=== PATIENT | female | born 1945 | race Caucasian/White ===

== ENCOUNTER 2020-03-07 12:02 | Inpatient (IN) | payer OTHER ==
[2020-03-07] MEDS ORDERED: ACETAMINOPHEN 325 MG TABLET (FP) PO ONE (13:39)
[2020-03-07 13:42] LABS: BASO % 0.3 % (0-2.0); HEMATOCRIT 36.2 % (32.4-45.2); HEMOGLOBIN 12.3 GM/dL (10.7-15.3); LYMPH % 18.6 % (8-40); MCH 29.2 pg (25.7-33.7); MEAN CELL VOLUME 85.6 fl (80-96); MEAN PLT VOLUME 9.5 fl (7.5-11.1); MONO % 11.8 % (3.8-10.2); NEUT % 69.3 % (42.8-82.8); PLATELET COUNT 140 K/MM3 (134-434); RBC 4.23 M/mm3 (3.60-5.2); RDW 17.3 % (11.6-15.6); WHITE BLOOD COUNT 3.4 K/mm3 (4.0-10.0)
[2020-03-07 14:49] LABS: CHLORIDE 97 mmol/L (98-107); POTASSIUM 3.5 mmol/L (3.5-5.1); SODIUM 133 mmol/L (136-145)
[2020-03-07 14:51] LABS: CALCIUM 8.4 mg/dL (8.5-10.1)
[2020-03-07 14:52] LABS: ALBUMIN 3.5 g/dl (3.4-5.0); ANION GAP 9 MMOL/L (8-16); BLOOD UREA NITROGEN 10.8 mg/dL (7-18); CO2 28 mmol/L (21-32); GLUCOSE,RANDOM 230 mg/dL (74-106)
[2020-03-07 14:56] LABS: SGOT/AST 22 U/L (15-37); SGPT/ALT 15 U/L (13-61)
[2020-03-07 14:57] LABS: ALK PHOS 79 U/L (45-117); BILIRUBIN,TOTAL 0.8 mg/dL (0.2-1); TOT PROT 6.9 g/dl (6.4-8.2)
[2020-03-07] MEDS ORDERED: ACETAMINOPHEN 325 MG TABLET (FP) ONE (15:20)
[2020-03-07 15:41] LABS: N-TERMINAL BNP 93.2 pg/ml (5-450)
[2020-03-07 15:49] LABS: INR 1.14 (0.83-1.09)
[2020-03-07 15:52] LABS: ACTIVATED PTT 29.6 SECONDS (25.2-36.5)
[2020-03-07] MEDS ORDERED: DEXAMETHASONE SOD PHOSPHATE 4 MG/1 ML VIAL IVPUSH ONE (16:00)
[2020-03-07] MEDS ORDERED: DEXAMETHASONE SOD PHOSPHATE 10 MG/1 ML VIAL ONE (16:46)
[2020-03-08 07:58] LABS: BASO % 0.3 % (0-2.0); HEMATOCRIT 36.6 % (32.4-45.2); HEMOGLOBIN 12.2 GM/dL (10.7-15.3); LYMPH % 21.6 % (8-40); MCH 28.7 pg (25.7-33.7); MCHC 33.4 g/dl (32.0-36.0); MEAN CELL VOLUME 85.9 fl (80-96); MEAN PLT VOLUME 9.6 fl (7.5-11.1); MONO % 8.8 % (3.8-10.2); NEUT % 69.3 % (42.8-82.8); PLATELET COUNT 144 K/MM3 (134-434); RBC 4.26 M/mm3 (3.60-5.2); WHITE BLOOD COUNT 2.3 K/mm3 (4.0-10.0)
[2020-03-08 08:25] LABS: POTASSIUM 3.7 mmol/L (3.5-5.1)
[2020-03-08 08:30] LABS: ALBUMIN 3.3 g/dl (3.4-5.0); CALCIUM 8.2 mg/dL (8.5-10.1)
[2020-03-08 08:31] LABS: BLOOD UREA NITROGEN 14.8 mg/dL (7-18); MAGNESIUM 2.3 mg/dL (1.8-2.4)
[2020-03-08 08:34] LABS: CREATININE 0.8 mg/dL (0.55-1.3); PHOSPHOROUS 3.1 mg/dL (2.5-4.9)
[2020-03-08 08:35] LABS: BILIRUBIN,TOTAL 0.9 mg/dL (0.2-1); TOT PROT 6.7 g/dl (6.4-8.2)
[2020-03-08] MEDS ORDERED: AZITHROMYCIN IVPB 500 MG/250 ML BAG IVPB ONE (10:47)
[2020-03-08] MEDS ORDERED: DEXAMETHASONE SOD PHOSPHATE 4 MG/1 ML VIAL ONE ×2 (10:47→14:36)
[2020-03-08] MEDS: ENOXAPARIN NA (PORCINE) 40 MG/0.4 ML DISP.SYRIN SQ SCH (11:48)
[2020-03-08] MEDS ORDERED: CEFTRIAXONE 1 GM in DEXTROSE 5%-WATER - 50 ML IVPB SCH (13:15)
[2020-03-08] MEDS ORDERED: AZITHROMYCIN IVPB 500 MG/250 ML BAG IVPB SCH (13:15)
[2020-03-08] MEDS: FAMOTIDINE 20 MG/50 ML IVPB 20 MG/50 ML MG IVPB SCH ×2 (14:12→22:14)
[2020-03-08] MEDS: AZITHROMYCIN IVPB 500 MG/250 ML BAG IVPB SCH (14:12)
[2020-03-08] MEDS: CEFTRIAXONE 1 GM in DEXTROSE 5%-WATER - 50 ML IVPB SCH (14:12)
[2020-03-08] MEDS: DEXAMETHASONE SOD PHOSPHATE 10 MG/1 ML VIAL IVPUSH SCH (14:12)
[2020-03-08] MEDS ORDERED: CEFTRIAXONE 1 GM/50 ML BAG ONE (14:37)
[2020-03-08] MEDS ORDERED: FAMOTIDINE 20 MG/50 ML IVPB 20 MG/50 ML MG IVPB ONE (14:37)
[2020-03-08] MEDS ORDERED: REMDESIVIR 200 MG in SODIUM CHLORIDE 210 ML IVPB ONE (14:49)
[2020-03-08] MEDS: SODIUM CHLORIDE 1,000 ML IV SCH ×2 (14:51→21:12)
[2020-03-08] MEDS: INSULIN SLIDING SCALE (NOVOLOG) 1 VIAL SQ SCH ×2 (18:03→21:26)
[2020-03-08] MEDS: ASCORBIC ACID 500 MG TABLET (FP) PO SCH (22:13)
[2020-03-08] MEDS: ZINC SULFATE 220 MG CAPSULE (FP) PO SCH (22:14)
[2020-03-09] MEDS: INSULIN SLIDING SCALE (NOVOLOG) 1 VIAL SQ SCH ×4 (06:16→21:46)
[2020-03-09 09:03] LABS: BASO % 0.1 % (0-2.0); HEMATOCRIT 32.1 % (32.4-45.2); HEMOGLOBIN 11.2 GM/dL (10.7-15.3); MCH 29.1 pg (25.7-33.7); MCHC 34.9 g/dl (32.0-36.0); MEAN CELL VOLUME 83.3 fl (80-96); MEAN PLT VOLUME 8.8 fl (7.5-11.1); NEUT % 79.9 % (42.8-82.8); PLATELET COUNT 180 K/MM3 (134-434); RBC 3.85 M/mm3 (3.60-5.2); RDW 16.8 % (11.6-15.6); WHITE BLOOD COUNT 5.1 K/mm3 (4.0-10.0)
[2020-03-09] MEDS ORDERED: PT OWN MED DRAWER 7, Y5N ONE ×2 (09:20→14:25)
[2020-03-09] MEDS ORDERED: DEXTROSE 5%-WATER - 50 ML IVPB ONE (09:20)
[2020-03-09] MEDS ORDERED: cefTRIAXone SODIUM 1 GM VIAL ONE (09:20)
[2020-03-09 09:23] LABS: POTASSIUM 3.5 mmol/L (3.5-5.1)
[2020-03-09] MEDS: ASCORBIC ACID 500 MG TABLET (FP) PO SCH ×2 (09:25→21:33)
[2020-03-09] MEDS: CHOLECALCIFEROL (VIT D3) 1,000 UNIT (25 MCG) TABLET PO SCH (09:25)
[2020-03-09] MEDS: ZINC SULFATE 220 MG CAPSULE (FP) PO SCH ×2 (09:25→21:33)
[2020-03-09 09:26] LABS: ALBUMIN 2.8 g/dl (3.4-5.0); BLOOD UREA NITROGEN 17.6 mg/dL (7-18); CALCIUM 7.8 mg/dL (8.5-10.1); MAGNESIUM 2.3 mg/dL (1.8-2.4)
[2020-03-09] MEDS: CEFTRIAXONE 1 GM in DEXTROSE 5%-WATER - 50 ML IVPB SCH (09:26)
[2020-03-09] MEDS: DEXAMETHASONE SOD PHOSPHATE 10 MG/1 ML VIAL IVPUSH SCH (09:27)
[2020-03-09 09:29] LABS: CREATININE 0.8 mg/dL (0.55-1.3); PHOSPHOROUS 3.2 mg/dL (2.5-4.9)
[2020-03-09] MEDS: ENOXAPARIN NA (PORCINE) 40 MG/0.4 ML DISP.SYRIN SQ SCH (09:29)
[2020-03-09 09:31] LABS: BILIRUBIN,TOTAL 0.6 mg/dL (0.2-1); TOT PROT 5.6 g/dl (6.4-8.2)
[2020-03-09] MEDS: AZITHROMYCIN IVPB 500 MG/250 ML BAG IVPB SCH (10:56)
[2020-03-09] MEDS: FAMOTIDINE 20 MG/50 ML IVPB 20 MG/50 ML MG IVPB SCH ×2 (13:09→21:33)
[2020-03-09] MEDS: REMDESIVIR 100 MG in SODIUM CHLORIDE 230 ML IVPB SCH (14:29)
[2020-03-09] MEDS ORDERED: INSULIN (NOVOLOG) ASPART 100 UNITS/ML 10ML VIAL ONE (17:50)
[2020-03-09] MEDS: SODIUM CHLORIDE 1,000 ML IV SCH (17:53)
[2020-03-09] MEDS: ATORVASTATIN CA 10 MG TABLET (FP) PO SCH (21:33)
[2020-03-10] MEDS: INSULIN SLIDING SCALE (NOVOLOG) 1 VIAL SQ SCH ×4 (06:21→21:21)
[2020-03-10 08:41] LABS: BASO % 0.3 % (0-2.0); HEMATOCRIT 32.3 % (32.4-45.2); LYMPH % 12.6 % (8-40); MCH 28.9 pg (25.7-33.7); MCHC 34.1 g/dl (32.0-36.0); MEAN CELL VOLUME 84.9 fl (80-96); MEAN PLT VOLUME 9.2 fl (7.5-11.1); MONO % 10.6 % (3.8-10.2); NEUT % 76.5 % (42.8-82.8); PLATELET COUNT 188 K/MM3 (134-434); RDW 16.7 % (11.6-15.6); WHITE BLOOD COUNT 5.4 K/mm3 (4.0-10.0)
[2020-03-10 08:55] LABS: POTASSIUM 3.8 mmol/L (3.5-5.1)
[2020-03-10 08:58] LABS: BLOOD UREA NITROGEN 16.2 mg/dL (7-18); CALCIUM 8.1 mg/dL (8.5-10.1)
[2020-03-10 09:01] LABS: CREATININE 0.7 mg/dL (0.55-1.3)
[2020-03-10] MEDS ORDERED: PT OWN MED DRAWER 7, Y5N ONE (09:16)
[2020-03-10] MEDS: ASCORBIC ACID 500 MG TABLET (FP) PO SCH ×2 (09:20→21:18)
[2020-03-10] MEDS: DEXAMETHASONE SOD PHOSPHATE 10 MG/1 ML VIAL IVPUSH SCH (09:21)
[2020-03-10] MEDS: ZINC SULFATE 220 MG CAPSULE (FP) PO SCH ×2 (09:21→21:17)
[2020-03-10] MEDS: FAMOTIDINE 20 MG/50 ML IVPB 20 MG/50 ML MG IVPB SCH ×2 (09:21→21:18)
[2020-03-10] MEDS: amLODIPine BESYLATE 5 MG TABLET (FP) PO SCH (09:21)
[2020-03-10] MEDS: CHOLECALCIFEROL (VIT D3) 1,000 UNIT (25 MCG) TABLET PO SCH (09:21)
[2020-03-10] MEDS: ENOXAPARIN NA (PORCINE) 40 MG/0.4 ML DISP.SYRIN SQ SCH (09:21)
[2020-03-10] MEDS ORDERED: INSULIN (NOVOLOG) ASPART 100 UNITS/ML 10ML VIAL ONE (12:22)
[2020-03-10] MEDS: REMDESIVIR 100 MG in SODIUM CHLORIDE 230 ML IVPB SCH (15:45)
[2020-03-10] MEDS: SODIUM CHLORIDE 1,000 ML IV SCH (15:45)
[2020-03-10] MEDS: ATORVASTATIN CA 10 MG TABLET (FP) PO SCH (21:17)
[2020-03-11] MEDS ORDERED: ACETAMINOPHEN 325 MG TABLET (FP) PO ONE (03:30)
[2020-03-11] MEDS: INSULIN SLIDING SCALE (NOVOLOG) 1 VIAL SQ SCH ×4 (06:09→22:01)
[2020-03-11 08:22] LABS: BASO % 0.1 % (0-2.0); HEMATOCRIT 37.1 % (32.4-45.2); HEMOGLOBIN 12.5 GM/dL (10.7-15.3); LYMPH % 16.6 % (8-40); MCH 28.3 pg (25.7-33.7); MCHC 33.5 g/dl (32.0-36.0); MEAN CELL VOLUME 84.5 fl (80-96); MEAN PLT VOLUME 9.1 fl (7.5-11.1); NEUT % 72.3 % (42.8-82.8); PLATELET COUNT 257 K/MM3 (134-434); RDW 16.9 % (11.6-15.6); WHITE BLOOD COUNT 5.9 K/mm3 (4.0-10.0)
[2020-03-11 08:41] LABS: POTASSIUM 3.2 mmol/L (3.5-5.1)
[2020-03-11 08:47] LABS: CALCIUM 8.3 mg/dL (8.5-10.1)
[2020-03-11 08:48] LABS: BLOOD UREA NITROGEN 17.8 mg/dL (7-18)
[2020-03-11 08:51] LABS: CREATININE 0.8 mg/dL (0.55-1.3)
[2020-03-11] MEDS ORDERED: BENZOCAINE/MENTH/CETYLPYRD CL 1 EACH LOZENGE MM PRN (09:01)
[2020-03-11] MEDS ORDERED: guaiFENesin 200 MG/10 ML 10 ML UNIT-DOSE CUPS PO PRN (09:01)
[2020-03-11] MEDS ORDERED: DOCUSATE SODIUM 100 MG CAPSULE (FP) PO PRN (09:02)
[2020-03-11] MEDS ORDERED: POTASSIUM CHLORIDE TABS 20 MEQ TABLET.ER (FP) PO ONE (09:04)
[2020-03-11] MEDS: FAMOTIDINE 20 MG/50 ML IVPB 20 MG/50 ML MG IVPB SCH ×2 (09:49→21:55)
[2020-03-11] MEDS: DEXAMETHASONE SOD PHOSPHATE 10 MG/1 ML VIAL IVPUSH SCH (09:49)
[2020-03-11] MEDS: ENOXAPARIN NA (PORCINE) 40 MG/0.4 ML DISP.SYRIN SQ SCH (09:50)
[2020-03-11] MEDS: ZINC SULFATE 220 MG CAPSULE (FP) PO SCH ×2 (09:50→21:55)
[2020-03-11] MEDS: CHOLECALCIFEROL (VIT D3) 1,000 UNIT (25 MCG) TABLET PO SCH (09:51)
[2020-03-11] MEDS: amLODIPine BESYLATE 5 MG TABLET (FP) PO SCH (09:51)
[2020-03-11] MEDS: ASCORBIC ACID 500 MG TABLET (FP) PO SCH ×2 (09:51→21:55)
[2020-03-11] MEDS ORDERED: INSULIN (NOVOLOG) ASPART 100 UNITS/ML 10ML VIAL ONE ×2 (11:11→21:59)
[2020-03-11] MEDS: REMDESIVIR 100 MG in SODIUM CHLORIDE 230 ML IVPB SCH (14:53)
[2020-03-11] MEDS: ATORVASTATIN CA 10 MG TABLET (FP) PO SCH (21:55)
[2020-03-11] MEDS ORDERED: PT OWN MED DRAWER 7, Y5N ONE (21:59)
[2020-03-12] MEDS: INSULIN SLIDING SCALE (NOVOLOG) 1 VIAL SQ SCH ×4 (06:15→21:48)
[2020-03-12 09:00] LABS: BASO % 0.1 % (0-2.0); HEMATOCRIT 34.9 % (32.4-45.2); HEMOGLOBIN 12.2 GM/dL (10.7-15.3); LYMPH % 10.2 % (8-40); MCH 28.8 pg (25.7-33.7); MCHC 34.9 g/dl (32.0-36.0); MEAN CELL VOLUME 82.6 fl (80-96); MEAN PLT VOLUME 8.5 fl (7.5-11.1); MONO % 7.1 % (3.8-10.2); NEUT % 82.6 % (42.8-82.8); PLATELET COUNT 294 K/MM3 (134-434); RBC 4.23 M/mm3 (3.60-5.2); RDW 16.4 % (11.6-15.6); WHITE BLOOD COUNT 7.6 K/mm3 (4.0-10.0)
[2020-03-12 09:18] LABS: POTASSIUM 3.5 mmol/L (3.5-5.1)
[2020-03-12 09:24] LABS: CALCIUM 8.4 mg/dL (8.5-10.1)
[2020-03-12 09:28] LABS: CREATININE 0.8 mg/dL (0.55-1.3)
[2020-03-12] MEDS: amLODIPine BESYLATE 5 MG TABLET (FP) PO SCH (10:58)
[2020-03-12] MEDS: FAMOTIDINE 20 MG/50 ML IVPB 20 MG/50 ML MG IVPB SCH ×2 (10:58→21:31)
[2020-03-12] MEDS: DEXAMETHASONE SOD PHOSPHATE 10 MG/1 ML VIAL IVPUSH SCH (10:58)
[2020-03-12] MEDS: ASCORBIC ACID 500 MG TABLET (FP) PO SCH ×2 (10:58→21:31)
[2020-03-12] MEDS: ENOXAPARIN NA (PORCINE) 40 MG/0.4 ML DISP.SYRIN SQ SCH (10:58)
[2020-03-12] MEDS: CHOLECALCIFEROL (VIT D3) 1,000 UNIT (25 MCG) TABLET PO SCH (10:58)
[2020-03-12] MEDS: ZINC SULFATE 220 MG CAPSULE (FP) PO SCH ×2 (10:58→21:31)
[2020-03-12] MEDS: REMDESIVIR 100 MG in SODIUM CHLORIDE 230 ML IVPB SCH (14:07)
[2020-03-12] MEDS: ATORVASTATIN CA 10 MG TABLET (FP) PO SCH (21:31)
[2020-03-13] MEDS: INSULIN SLIDING SCALE (NOVOLOG) 1 VIAL SQ SCH ×4 (06:29→21:49)
[2020-03-13] MEDS ORDERED: INSULIN (NOVOLOG) ASPART 100 UNITS/ML 10ML VIAL ONE (06:31)
[2020-03-13 09:37] LABS: BASO % 0.2 % (0-2.0); HEMATOCRIT 37.9 % (32.4-45.2); HEMOGLOBIN 12.9 GM/dL (10.7-15.3); LYMPH % 11.2 % (8-40); MCH 28.6 pg (25.7-33.7); MCHC 34.1 g/dl (32.0-36.0); MEAN CELL VOLUME 83.8 fl (80-96); MEAN PLT VOLUME 8.9 fl (7.5-11.1); MONO % 8.3 % (3.8-10.2); NEUT % 80.3 % (42.8-82.8); PLATELET COUNT 333 K/MM3 (134-434); RBC 4.52 M/mm3 (3.60-5.2); RDW 16.8 % (11.6-15.6); WHITE BLOOD COUNT 6.9 K/mm3 (4.0-10.0)
[2020-03-13] MEDS: CHOLECALCIFEROL (VIT D3) 1,000 UNIT (25 MCG) TABLET PO SCH (09:47)
[2020-03-13] MEDS: ASCORBIC ACID 500 MG TABLET (FP) PO SCH ×2 (09:47→21:17)
[2020-03-13] MEDS: amLODIPine BESYLATE 5 MG TABLET (FP) PO SCH (09:47)
[2020-03-13] MEDS: ENOXAPARIN NA (PORCINE) 40 MG/0.4 ML DISP.SYRIN SQ SCH (09:47)
[2020-03-13] MEDS: ZINC SULFATE 220 MG CAPSULE (FP) PO SCH ×2 (09:47→21:17)
[2020-03-13] MEDS: DEXAMETHASONE SOD PHOSPHATE 10 MG/1 ML VIAL IVPUSH SCH (09:48)
[2020-03-13] MEDS: FAMOTIDINE 20 MG TABLET PO SCH ×2 (09:48→21:19)
[2020-03-13 10:04] LABS: POTASSIUM 3.9 mmol/L (3.5-5.1)
[2020-03-13 10:05] LABS: BLOOD UREA NITROGEN 17.8 mg/dL (7-18); CALCIUM 8.5 mg/dL (8.5-10.1)
[2020-03-13 10:08] LABS: CREATININE 0.8 mg/dL (0.55-1.3)
[2020-03-13 10:57] LABS: ERYTHROCYTE SEDIMENTATION RATE 14 mm/hr (0-30)
[2020-03-13] MEDS: ATORVASTATIN CA 10 MG TABLET (FP) PO SCH (21:17)
[2020-03-14] MEDS: INSULIN SLIDING SCALE (NOVOLOG) 1 VIAL SQ SCH ×4 (06:05→22:15)
[2020-03-14] MEDS ORDERED: PT OWN MED DRAWER 7, Y5N ONE (09:47)
[2020-03-14] MEDS: ZINC SULFATE 220 MG CAPSULE (FP) PO SCH ×3 (10:07→21:58)
[2020-03-14] MEDS: CHOLECALCIFEROL (VIT D3) 1,000 UNIT (25 MCG) TABLET PO SCH ×2 (10:07→10:18)
[2020-03-14] MEDS: FAMOTIDINE 20 MG TABLET PO SCH ×2 (10:07→21:58)
[2020-03-14] MEDS: ASCORBIC ACID 500 MG TABLET (FP) PO SCH ×3 (10:07→21:58)
[2020-03-14] MEDS: amLODIPine BESYLATE 5 MG TABLET (FP) PO SCH (10:07)
[2020-03-14] MEDS: ENOXAPARIN NA (PORCINE) 40 MG/0.4 ML DISP.SYRIN SQ SCH (11:43)
[2020-03-14] MEDS: ATORVASTATIN CA 10 MG TABLET (FP) PO SCH (21:58)
[2020-03-15] MEDS: INSULIN SLIDING SCALE (NOVOLOG) 1 VIAL SQ SCH ×2 (06:56→12:54)
[2020-03-15 10:03] LABS: BASO % 0.5 % (0-2.0); EOS % 0.6 % (0-4.5); HEMATOCRIT 38.4 % (32.4-45.2); HEMOGLOBIN 13.1 GM/dL (10.7-15.3); LYMPH % 8.7 % (8-40); MCH 28.9 pg (25.7-33.7); MCHC 34.1 g/dl (32.0-36.0); MEAN CELL VOLUME 84.6 fl (80-96); MEAN PLT VOLUME 8.8 fl (7.5-11.1); NEUT % 80.2 % (42.8-82.8); PLATELET COUNT 389 K/MM3 (134-434); RBC 4.54 M/mm3 (3.60-5.2); RDW 17.1 % (11.6-15.6); WHITE BLOOD COUNT 8.9 K/mm3 (4.0-10.0)
[2020-03-15 10:20] LABS: POTASSIUM 3.9 mmol/L (3.5-5.1)
[2020-03-15] MEDS ORDERED: PT OWN MED DRAWER 7, Y5N ONE (10:20)
[2020-03-15 10:22] LABS: BLOOD UREA NITROGEN 21.1 mg/dL (7-18); CALCIUM 8.9 mg/dL (8.5-10.1)
[2020-03-15] MEDS: amLODIPine BESYLATE 5 MG TABLET (FP) PO SCH (10:22)
[2020-03-15] MEDS: CHOLECALCIFEROL (VIT D3) 1,000 UNIT (25 MCG) TABLET PO SCH (10:22)
[2020-03-15] MEDS: ZINC SULFATE 220 MG CAPSULE (FP) PO SCH (10:22)
[2020-03-15] MEDS: ASCORBIC ACID 500 MG TABLET (FP) PO SCH (10:22)
[2020-03-15] MEDS: FAMOTIDINE 20 MG TABLET PO SCH (10:22)
[2020-03-15 10:26] LABS: CREATININE 0.8 mg/dL (0.55-1.3)
[2020-03-15] MEDS: ENOXAPARIN NA (PORCINE) 40 MG/0.4 ML DISP.SYRIN SQ SCH (12:49)
[2020-03-15 15:00] VITALS: BMI 25.4
[2020-03-15 15:21] VITALS: BP 108/65; PULSE 109; TEMP 98.1
== END 2020-03-15 17:21 | disposition home or self-care (01) | DRG 871 ==
LOC: JER 12:02 → JERBED 16:42 → J8W 03-08 18:46
PROVIDERS: ADMIT Internal Medicine; ATTEND Internal Medicine
PROC: XW033E5 Introduction of Remdesivir Anti-infective into Peripheral Vein, Percutaneous Approach, New Technology Group 5 (ICD-10-PCS; 2020-03-08)
PROC: XW13325 Transfusion of Convalescent Plasma (Nonautologous) into Peripheral Vein, Percutaneous Approach, New Technology Group 5 (ICD-10-PCS; principal; 2020-03-09)
DX: A41.89 Other specified sepsis (principal); U07.1 COVID-19; J12.82 Pneumonia due to coronavirus disease 2019; J96.01 Acute respiratory failure with hypoxia; E87.2 Acidosis; E11.9 Type 2 diabetes mellitus without complications; I10 Essential (primary) hypertension
CPT/HCPCS: 36415; 36430; 71045-TC-FY; 80048; 80053; 82308; 82550; 82728; 82962; 83605; 83615; 83735; 83880; 84100; 84484; 85025; 85379; 85610; 85651; 85730; 86140; 86850; 86900; 86901; 87040; 87426; 87804; 93005; 93010; 94761; 97116-GP; 97161-GP; 99285-25; C9399; J1100; P9017

== ENCOUNTER 2022-08-28 09:35 | Observation (INO) | payer OTHER ==
[2022-08-28 11:05] LABS: BASO % 0.3 % (0-2.0); EOS % 0.1 % (0-4.5); HEMATOCRIT 39.5 % (32.4-45.2); HEMOGLOBIN 13.3 GM/dL (10.7-15.3); LYMPH % 8.3 % (8-40); MCH 28.6 pg (25.7-33.7); MCHC 33.7 g/dl (32.0-36.0); MEAN CELL VOLUME 84.9 fl (80-96); MEAN PLT VOLUME 9.2 fl (7.5-11.1); MONO % 3.3 % (3.8-10.2); PLATELET COUNT 203 10^3/uL (134-434); RBC 4.65 M/mm3 (3.60-5.2); RDW 16.8 % (11.6-15.6); WHITE BLOOD COUNT 8.2 K/mm3 (4.0-10.0)
[2022-08-28 11:05] LABS: INR 0.97 (0.83-1.09); PROTHROMBIN TIME (PATIENT) 11.2 SEC (9.7-13.0)
[2022-08-28 11:07] LABS: ACTIVATED PTT 30.9 SECONDS (25.2-36.5)
[2022-08-28 11:13] LABS: VENOUS BASE EXCESS 1.5 mmol/L (-2-2); VENOUS O2 SATURATION 37.3 % (70-80); VENOUS PCO2 48.4 mmHg (38-52); VENOUS PH 7.372 (7.310-7.410)
[2022-08-28 11:22] LABS: CHLORIDE 104 mmol/L (98-107); POTASSIUM 4.3 mmol/L (3.5-5.1); SODIUM 140 mmol/L (136-145)
[2022-08-28 11:25] LABS: ALBUMIN 4.2 g/dl (3.4-5.0); ANION GAP 10 MMOL/L (8-16); BLOOD UREA NITROGEN 21.7 mg/dL (7-18); CALCIUM 9.8 mg/dL (8.5-10.1); CO2 27 mmol/L (21-32); GLUCOSE,RANDOM 251 mg/dL (74-106)
[2022-08-28 11:27] LABS: SGOT/AST 17 U/L (15-37)
[2022-08-28 11:28] LABS: SGPT/ALT 18 U/L (13-61)
[2022-08-28 11:29] LABS: BILIRUBIN,TOTAL 0.8 mg/dL (0.2-1); TOT PROT 7.1 g/dl (6.4-8.2)
[2022-08-28 11:30] LABS: ALK PHOS 80 U/L (45-117)
[2022-08-28] MEDS ORDERED: SODIUM CHLORIDE 1,000 ML IV STA (12:57)
[2022-08-28 12:58] LABS: EPI CELLS >36 /uL (0-25.1); HYALINE CASTS 1 /uL (0-3.1); URINE APPEARANCE CLOUDY; URINE BACTERIA 144 /uL (0-1359); URINE BILIRUBIN NEGATIVE (NEGATIVE); URINE COLOR YELLOW; URINE GLUCOSE (UA) TRACE (NEGATIVE); URINE KETONE NEGATIVE (NEGATIVE); URINE LEUK ESTERASE 1+ (NEGATIVE); URINE NITRITE NEGATIVE (NEGATIVE); URINE PROTEIN NEGATIVE (NEGATIVE); URINE RBC 12 /uL (0-23.9); URINE WBC 46 /uL (0-25.8)
[2022-08-28] MEDS ORDERED: ONDANSETRON 4 MG/2 ML VIAL IVPUSH ONE (12:58)
[2022-08-28] MEDS ORDERED: MECLIZINE HCL 25 MG TABLET (FP) PO ONE (13:22)
[2022-08-28] MEDS ORDERED: ACETAMINOPHEN 325 MG TABLET (FP) PO PRN (14:01)
[2022-08-28] MEDS ORDERED: MECLIZINE HCL 25 MG TABLET (FP) ONE (14:02)
[2022-08-28] MEDS ORDERED: ONDANSETRON 4 MG/2 ML VIAL ONE (14:02)
[2022-08-28 17:54] VITALS: BMI 26.2
[2022-08-28] MEDS ORDERED: INSULIN (NOVOLOG) ASPART 100 UNITS/ML 10ML VIAL ONE (17:58)
[2022-08-28] MEDS: INSULIN SLIDING SCALE (NOVOLOG) 1 VIAL SQ SCH (17:59)
[2022-08-28] MEDS ORDERED: ATORVASTATIN CA 10 MG TABLET (FP) PO SCH (22:00)
[2022-08-29] MEDS: INSULIN SLIDING SCALE (NOVOLOG) 1 VIAL SQ SCH ×2 (06:17→11:05)
[2022-08-29 07:53] LABS: HEMATOCRIT 37.1 % (32.4-45.2); HEMOGLOBIN 12.3 GM/dL (10.7-15.3); MCH 28.8 pg (25.7-33.7); MCHC 33.2 g/dl (32.0-36.0); MEAN CELL VOLUME 86.7 fl (80-96); MEAN PLT VOLUME 9.2 fl (7.5-11.1); PLATELET COUNT 191 10^3/uL (134-434); RBC 4.28 M/mm3 (3.60-5.2); RDW 17.5 % (11.6-15.6); WHITE BLOOD COUNT 6.2 K/mm3 (4.0-10.0)
[2022-08-29 08:26] LABS: POTASSIUM 4.3 mmol/L (3.5-5.1)
[2022-08-29 08:29] LABS: CALCIUM 9.2 mg/dL (8.5-10.1)
[2022-08-29 08:30] LABS: BLOOD UREA NITROGEN 15.6 mg/dL (7-18)
[2022-08-29 08:34] LABS: CREATININE 0.9 mg/dL (0.55-1.3)
[2022-08-29 08:51] VITALS: BP 154/75; PULSE 93; RESP 18; TEMP 98.6
[2022-08-29] MEDS ORDERED: ENOXAPARIN NA (PORCINE) 40 MG/0.4 ML DISP.SYRIN SQ SCH (10:00)
[2022-08-29] MEDS ORDERED: LOSARTAN POTASSIUM 50 MG TABLET PO SCH (10:00)
== END 2022-08-29 15:03 | disposition home or self-care (01) ==
LOC: JER 09:35 → JERBED 12:59 → J4W 17:33
PROVIDERS: ADMIT Internal Medicine; ATTEND Internal Medicine
PROC: 3E023GC Introduction of Other Therapeutic Substance into Muscle, Percutaneous Approach (ICD-10-PCS; principal; 2022-08-28)
PROC: 3E033GC Introduction of Other Therapeutic Substance into Peripheral Vein, Percutaneous Approach (ICD-10-PCS; 2022-08-28)
PROC: 3E0337Z Introduction of Electrolytic and Water Balance Substance into Peripheral Vein, Percutaneous Approach (ICD-10-PCS; 2022-08-28)
DX: R42 Dizziness and giddiness (principal); R25.8 Other abnormal involuntary movements; I10 Essential (primary) hypertension; E11.9 Type 2 diabetes mellitus without complications; E78.5 Hyperlipidemia, unspecified
CPT/HCPCS: 0241U-QW; 36415; 70450-TC; 71045-TC-FY; 80048; 80053; 80061; 81003; 82550; 82553; 82803; 82962; 83036; 83605; 84484; 85025; 85027; 85610; 85730; 86850; 86900; 86901; 87086; 93005; 93010; 96361; 96372; 96374; 97116-GP; 97162-GP; 99285-25; G0378